=== PATIENT | female | born 1960 | race Caucasian/White ===

== ENCOUNTER 2016-10-22 20:08 | Observation (INO) | payer OTHER ==
[~2016-10-22] VITALS: Ht 167.6 cm; Wt 72.8 kg
[2016-10-22 22:25] LABS: HEMATOCRIT 41.5 % (36.0-46.0); MCV 85.4 FL (83-99); MEAN PLAT.VOLUME 10.5 uM^3 (9.5-12.4); PLATELET COUNT 312 K/uL (156-360); RBC DIS.WIDTH-CV 11.9 % (11.8-14.6); RBC DIS.WIDTH-SD 36.7 % (39-53); RED BLOOD COUNT 4.86 M/uL (3.80-5.20); WHITE BLOOD COUNT 8.9 K/uL (4.1-10.2)
[2016-10-22 22:37] LABS: CHLORIDE 102 mEq/L (99-109); POTASSIUM 3.5 mEq/L (3.7-5.4); SODIUM 137 mEq/L (136-147)
[2016-10-22 22:39] LABS: GLUCOSE 107 mg/dL (70-99)
[2016-10-22 22:40] LABS: ANION GAP 8 MEQ/L (2-14)
[2016-10-22 22:41] LABS: TOTAL BILIRUBIN 0.5 mg/dL (0.0-1.0)
[2016-10-22 22:43] LABS: ALKALINE PHOSPHATASE 59 IU/L (3-129); GFR ESTIMATE (CALCULATED) > 59 mL/min/
[2016-10-22 22:44] LABS: UREA NITROGEN (BUN) 20 mg/dL (9-23)
[2016-10-22 22:52] LABS: TROP-I INTERPRETATION NEGATIVE; TROPONIN-I < 0.01 ng/mL (0.0-0.30)
[2016-10-22] MEDS ORDERED: HYDROCHLOROTHIA25 MG PO (23:49)
[2016-10-22] MEDS ORDERED: SYNTHROID100 MCG PO (23:49)
[2016-10-22] MEDS ORDERED: LISINOPRIL40 MG PO (23:49)
[2016-10-22] MEDS ORDERED: VITAMIN D2000 UNIT PO (23:49)
[2016-10-22] MEDS ORDERED: TYLENOL EXTRA500 MG PO (23:49)
[2016-10-23 00:40] LABS: ADD MIUA? NO; BILIRUBIN NEGATIVE; BLOOD NEGATIVE; COLOR STRAW ((YELLOW)); GLUCOSE (STRIP) NEGATIVE; KETONES NEGATIVE; LEUKOCYTES NEGATIVE; NITRITE NEGATIVE; PROTEIN (STRIP) NEGATIVE; SPECIFIC GRAVITY 1.005 (1.000-1.030); UCUL ADDED? NO; UROBILINOGEN 0.2 MG/DL (0.2-1.0)
[2016-10-23 00:47] LABS: TROP-I INTERPRETATION NEGATIVE; TROPONIN-I < 0.01 ng/mL (0.0-0.30)
[2016-10-23 03:46] LABS: LIPASE 46 U/L (1.0-51.0)
[2016-10-23 04:14] LABS: D-DIMER ELISA < 0.15 mg/L FEU (< 0.57)
[2016-10-23 04:20] LABS: TROP-I INTERPRETATION NEGATIVE; TROPONIN-I < 0.01 ng/mL (0.0-0.30)
[2016-10-23 04:53] VITALS: BP 151/68
[2016-10-23 06:44] VITALS: BP 165/82
[2016-10-23 07:47] VITALS: BP 143/77
[2016-10-23 07:48] VITALS: BP 142/86
[2016-10-23] MEDS ORDERED: PROTONIX20 MG PO (10:34)
[2016-10-23] MEDS ORDERED: ANTIVERT12.5 MG PO (10:37)
[2016-10-23 10:47] LABS: TROP-I INTERPRETATION NEGATIVE; TROPONIN-I < 0.01 ng/mL (0.0-0.30)
== END 2016-10-23 11:12 | disposition home or self-care (01) ==
LOC: EME 20:08 → RME 20:08 → EDOF 10-23 02:53 → 5WEST 10-23 04:41
PROVIDERS: Hospitalist; Physician Assistant
DX: R07.89 Other chest pain (principal); I10 Essential (primary) hypertension; E78.5 Hyperlipidemia, unspecified; E03.9 Hypothyroidism, unspecified; K21.9 Gastro-esophageal reflux disease without esophagitis; E87.6 Hypokalemia
CPT/HCPCS: 71020; 80053; 81003; 83690; 84484; 85027; 85379; 93005; 99281; 99285; G0378